=== PATIENT | female | born 1965 | race Asian ===

== ENCOUNTER 2017-04-20 11:58 | Inpatient (IN) | payer SELFPAY ==
[~2017-04-20] VITALS: Ht 157.5 cm; Wt 51.9 kg
[2017-04-20] MEDS ORDERED: IV NORMAL SALINE 1000ML BAG 1,000 ML IV SCH (13:01)
[2017-04-20 13:15] VITALS: BP 172/117
[2017-04-20] MEDS ORDERED: MAGNESIUM HYDROXIDE 2,400 MG/30 ML ORAL.SUSP. PO PRN (13:15)
[2017-04-20] MEDS ORDERED: MAG HYDROX/ALUMINUM HYD/SIMETH 30 ML ORAL.SUSP PO PRN (13:15)
[2017-04-20] MEDS ORDERED: ONDANSETRON PF 4 MG/2 ML VIAL. IV PRN (13:15)
[2017-04-20] MEDS ORDERED: 0.9 % SODIUM CHLORIDE 10 ML DISP.SYRIN. IV PRN (13:15)
[2017-04-20] MEDS ORDERED: AZITHROMYCIN 500 MG in IV NORMAL SALINE 250ML 250 ML IV ONE (13:15)
[2017-04-20] MEDS: ALBUTEROL SULFATE 2.5 MG/3 ML NEBU. NEB PRN ×2 (13:30→20:55)
[2017-04-20 13:57] LABS: BASO % 0 % (0-3); EOS % 0 % (0-3); HEMATOCRIT 44.9 % (36.0-47.0); HEMOGLOBIN 15.5 g/dL (12.0-15.5); LYMPH # 1.8 x10^3/uL (1.0-4.8); LYMPH % 27 % (24-48); MEAN CORPUSCULAR HEMOGLOBIN 28 pg (25-35); MEAN CORPUSCULAR HGB CONC 35 g/dL (31-37); MEAN CORPUSCULAR VOLUME 81 fL (79-100); MONO % 13 % (0-9); NEUT % 60 % (31-73); PLATELET COUNT 449 x10^3/uL (140-400); RED BLOOD COUNT 5.57 x10^6/uL (3.50-5.40); WHITE BLOOD COUNT 6.6 x10^3/uL (4.0-11.0)
[2017-04-20] MEDS: ENOXAPARIN 40 MG/0.4 ML SYRINGE. SQ SCH (13:59)
[2017-04-20] MEDS: HYDROcodone/APAP 5/325MG 1 TAB TABLET PO PRN ×2 (14:08→20:22)
[2017-04-20 14:19] LABS: ALBUMIN 3.2 g/dL (3.4-5.0); ALBUMIN/GLOBULIN RATIO 0.7 (1.0-1.7); CALCIUM 8.9 mg/dL (8.5-10.1); CREATININE 0.8 mg/dL (0.6-1.0); GFR 75.3; POTASSIUM 3.1 mmol/L (3.5-5.1); TOTAL BILIRUBIN 0.5 mg/dL (0.2-1.0)
[2017-04-20] MEDS ORDERED: CARV6.252 PO (14:26)
[2017-04-20 14:32] VITALS: BP 148/96
--- NOTE | 2017-04-20 14:36 | EKG ---
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
--- NOTE | 2017-04-20 15:52 | RAD ---
CT chest without contrast 04/20/2017 Clinical indication: Chest pain and concern for pneumonia. Comparison: Chest radiograph 04/20/2017. Technique: Multiple CT images of the chest were obtained without contrast according to standard protocol. Coronal and sagittal reformations were obtained. PQRS Compliance Statement: One or more of the following individualized dose reduction techniques were utilized for this examination: 1. Automated exposure control 2. Adjustment of the mA and/or kV according to patient size 3. Use of iterative reconstruction technique Findings: Chest: Pectus excavatum deformity. Heart size is upper limits of normal desiccation and pericardial effusion. The thoracic aorta is normal in caliber with minimal calcified atheromatous disease at the aortic arch. No axillary, mediastinal or obvious hilar lymphadenopathy, though evaluation is limited in the absence of intravenous contrast. Central airways are patent. There is patchy consolidation in in the right upper lobe with associated groundglass and nodular opacities. There are patchy groundglass opacities in the right lower lobe, lingula and left lower lobe with a few associated tree-in-bud opacities. No pleural effusion or pneumothorax. There are no destructive osseous lesions. Limited images of the upper abdomen: Grossly unremarkable. Impression: Patchy airspace airspace consolidation in the right upper lobe and bilateral groundglass and tree-in-bud opacities most compatible with multifocal infection.
--- NOTE | 2017-04-20 16:21 | RAD ---
Chest, 2 views, 04/20/2017: History: Pneumonia The heart is mildly enlarged. The pulmonary vascularity is normal. There is mild patchy right upper lobe infiltrate. There are mild streaky opacities in the lower chest compatible with atelectasis and/or scarring. No pleural fluid is seen. The bony structures are unremarkable. IMPRESSION: Mild right upper lobe infiltrate suggesting pneumonia.
[2017-04-20] MEDS: ACETAMINOPHEN 325 MG TABLET. PO PRN (16:35)
[2017-04-20] MEDS ORDERED: LISI10TA2 PO (18:01)
[2017-04-20 19:01] VITALS: BP 161/104
--- NOTE | 2017-04-20 20:21 | HP ---
ADMIT DATE: 04/20/2017 ADMISSION DIAGNOSIS: Pneumonia with acute respiratory failure. HISTORY OF PRESENT ILLNESS: This is a 51-year-old female who was in the [facility] and left to come home last Monday. As she was saying goodbye to families and friends, she was exposed to someone ____ with a cold and someone with pneumonia. She started developing some cough and cold symptoms last Monday as she was getting home. Her symptoms gradually worsened, then on Tuesday 04/17, she was seen at [facility] where a chest x-ray was done and she was diagnosed with pneumonia, started on Levaquin, given guaifenesin with codeine cough syrup, prednisone 10 mg to take t.i.d. Since then, she has not shown any improvement and has had worsening respiratory distress, is now sitting up and leaning forward to breathe. She is having some chest discomfort associated with breathing. She has not had a fever today. She has not had much appetite. She had not had any vomiting. She had not had any diarrhea and she had not had any urinary tract symptoms. She has not had any rash. She is unaware of any mosquito bites or other bug bites while in the [facility]. PAST MEDICAL HISTORY: Significant for a ventral hernia, hypertension, cervical cancer, hyperlipidemia. PAST SURGICAL HISTORY: Includes complete hysterectomy and ventral hernia repair with mesh in 2011. FAMILY HISTORY: Mother alive with diabetes. Father at age 51 with hypertension, diabetes and a stroke. Brother has had hypertension and heart attack. Another brother diabetic. SOCIAL HISTORY: She is . She has never smoked. Her is with her. ALLERGIES: She has no known drug allergies. CURRENT MEDICATIONS: Include lisinopril 10 mg daily, prednisone 10 mg, Robitussin with codeine 100/5 one teaspoon q. 4 hours p.r.n. cough and levofloxacin 750 mg daily, which she started 4 days ago, she has 3 days left. REVIEW OF SYSTEMS: CONSTITUTIONAL: Fever, chills, diminished appetite. HEENT: Congestion, cough. PULMONARY: Cough, shortness of breath. CARDIAC: Chest pain, but not anginal type. ABDOMEN: No vomiting or diarrhea. GENITOURINARY: No dysuria. MUSCULOSKELETAL: Generalized weakness. SKIN: No rash. NEUROLOGIC: No seizures or tremor. PHYSICAL EXAMINATION: VITAL SIGNS: She is afebrile. Heart rates tachycardic, but regular. Blood pressure 130/88. Weight is 104 pounds. She is 61.5 inches. Her temperature is 97.9 with an SaO2 on room air of 94%. GENERAL: She is in some moderate respiratory discomfort. HEENT: A little bit of congestion. Sclerae nonicteric. Conjunctivae are clear. TMs look normal. Posterior pharynx unremarkable without any erythema. NECK: Supple without adenopathy. LUNGS: With coarse sounds bilaterally. HEART: Tachycardic. No murmurs heard. ABDOMEN: Soft, nondistended. CHEST: Shows a bit of a pectus change. BREASTS: Not examined. BACK: There is no CVA tenderness. She is ambulatory with adequate strength, but activity makes her more dyspneic. She is sitting up, leaning forward to be most comfortable. EXTREMITIES: There is no clubbing, cyanosis or peripheral edema. NEUROLOGIC: There are no focal neurologic findings. LABORATORY STUDIES: Hematology: White count 6.6, hemoglobin 15.5, hematocrit 44.9, platelets elevated at 449. Differential shows an elevated Monospot, her mono percentage albarran 13, but otherwise unremarkable. Coags: Her D-dimer is 1.45. Chemistries: Potassium is 3.1, BUN 13, creatinine 0.8, glucose 187, albumin 3.2, but otherwise are normal. IMAGING: Chest x-ray shows a right upper lobe infiltrate consistent with pneumonia. CT of her chest shows pectus excavatum deformity, heart size is at the upper limits of normal. Thoracic aorta is normal. Minimal calcified atheromatous disease and an aortic arch is noted. No axillary or mediastinal obvious hilar lymphadenopathy is noted. There is patchy consolidation in the right upper lobe with associated ground glass nodular opacities. There are patchy ground glass opacities in the right lower lobe, lingula and left lower lobe with a few associated tree-in-bud opacities, but no pleural effusion or pneumothorax consistent with right upper lobe and multifocal areas of infection. ASSESSMENT: Pneumonia with acute respiratory failure, ____ additional studies, her EKG shows a supraventricular rhythm with aberrant intraventricular conduction, abnormal right axis deviation, likely related to her pectus deformity, but no acute apparent changes. There are some RVH with repolarization abnormality also noted. She is admitted, she is started on IV azithromycin and IV Rocephin and neb treatments. I do not think steroids at this point are helpful. Her chest pain will be treated with Lortab. We will try to avoid morphine for now to avoid any respiratory suppression, will consult Pulmonary. Her D-dimer was high and she did have a recent travel on the plane back from the [facility], but CT of her chest was done, CTA was requested, but nursing staff put in the order for CT, may need to do a VQ scan. W Gabby LAYTON MD DR: VIRI/vanna JOB#: [id number] / [id number]
[2017-04-20] MEDS: ZOLPIDEM 5 MG TABLET. PO PRN (21:52)
[2017-04-20 22:44] VITALS: BP 170/103
[2017-04-21] MEDS: HYDROcodone/APAP 5/325MG 1 TAB TABLET PO PRN ×4 (02:06→20:51)
[2017-04-21] MEDS: ALBUTEROL SULFATE 2.5 MG/3 ML NEBU. NEB PRN (02:11)
[2017-04-21 03:00] VITALS: BP 170/109
[2017-04-21] MEDS: guaiFENesin DM 200MG/20MG 10 ML SYRUP PO PRN ×4 (03:03→20:51)
[2017-04-21] MEDS: hydrALAZINE 20 MG/ML VIAL. IVP PRN (03:05)
--- NOTE | 2017-04-21 04:36 | ACF ---
Admission Forms Criteria PNEUMONIA, COMMUNITY ACQUIRED Clinical Indications for Admission to Inpatient Care (Place 'X' for any and all applicable criteria): Admission to inpatient status for two midnights or more is indicated for ANY ONE of the following (1)(2)(3): [ ]I. Hypoxia [ ]II. Hemodynamic instability [ ]III. Altered mental status that is severe or persistent [ ]IV. Dehydration that is severe or persistent. [ ]V. Bacteremia [ ]. Moderate-risk or high-risk category patients (Pneumonia Severity Index ( PSI) class IV or V, or CURB-65 score of 3 or greater). [ ]VII. Intermediate-risk category patients (e.g., PSI class III or CURB-65 score 2) who do not improve with outpatient and observation care treatment [ ]VIII. Outpatient treatment failure as indicated by 1 or more of the following(9): [ ]a) Failure to respond to antibiotic (eg, resistant organism) [ ]b) Clinically significant adverse effects from medication (eg, vomiting) [ ]c) Complications of pneumonia (eg, empyema, bacteremia) [ ]d) Significant worsening of comorbid cond necessitating inpatient care (eg, chronic heart failure) [ ]IX. Appropriate diagnostic testing and treatment unavailable in outpatient or recovery facility (eg, testing or infection control measures unavailable) [X]X. Respiratory finding (eg. tachypnea) that do not respond to outpatient observation care treatment [ ]XI. Complicated pleural effusions (eg, emphysema, exudative, loculated) [ ]XII. Immunocompromised patients (e.g., AIDS, chronic steroid use) at moderate or high risk based on clinical evaluation. Extended stay beyond goal length of stay may be needed for (20) [ ]a) Unclear diagnosis [ ]b) Pleural disease [ ]c) Severe pneumonia or treatment failure [ ]d) Respiratory failure [ ]e) New onset hyponatremia (serum Na concentration less than 135 mEq/L(mmol/ L) [ ]f) Clinically significant comorbid illness (eg, heart failure, atrial fibrillation with rapid heart rate, alcohol withdrawal, renal insufficiency)(34)(35) [ ]g) Comorbid acute exacerbation of COPD(36) [ ]h) Concomitant diagnosis of malignancy [ ]i) Concomitant altered mental status [ ]j) Culture-identified Gram-negative or antibiotic-resistant organism (eg, Pseudomonas, methicillin-resistant Staphylococcus aureus MRSA)(30) [ ]k) Healthcare-associated pneumonia (36) The original [facility] content created by [facility] has been revised. The portions of the content which have been revised are identified through the use of italic text, and [facility] has neither reviewed nor approved the modified material. All other unmodified content is copyright [facility]. Please see references footnoted in the original [facility] edition 2015 Admission Criteria Met?: Yes ANDREW AMEZCUA Apr 21, 2017 04:36
[2017-04-21 07:00] VITALS: BP 124/89
[2017-04-21] MEDS: ACETAMINOPHEN 325 MG TABLET. PO PRN ×2 (09:39→17:41)
[2017-04-21 10:44] VITALS: BP 148/89
[2017-04-21] MEDS: ENOXAPARIN 40 MG/0.4 ML SYRINGE. SQ SCH (14:09)
[2017-04-21 14:58] VITALS: BP 136/87
[2017-04-21] MEDS: AZITHROMYCIN 250 MG in IV NORMAL SALINE 250ML 250 ML IV SCH (15:01)
--- NOTE | 2017-04-21 18:00 | PDOC ---
PULMONARY PROGRESS NOTES Vitals Vital Signs Date Time Temp Pulse Resp B/P (MAP) Pulse Ox O2 Delivery O2 Flow Rate FiO2 04/21/17 15:28 Nasal Cannula 2.0 04/21/17 14:58 98.1 97 20 136/87 (103) 98 98.1 Labs Laboratory Tests Test 04/20/17 13:15 04/20/17 13:45 White Blood Count 6.6 x10^3/uL (4.0-11.0) Red Blood Count 5.57 x10^6/uL (3.50-5.40) Hemoglobin 15.5 g/dL (12.0-15.5) Hematocrit 44.9 % (36.0-47.0) Mean Corpuscular Volume 81 fL (79-100) Mean Corpuscular Hemoglobin 28 pg (25-35) Mean Corpuscular Hemoglobin Concent 35 g/dL (31-37) Red Cell Distribution Width 14.0 % (11.5-14.5) Platelet Count 449 x10^3/uL (140-400) Neutrophils (%) (Auto) 60 % (31-73) Lymphocytes (%) (Auto) 27 % (24-48) Monocytes (%) (Auto) 13 % (0-9) Eosinophils (%) (Auto) 0 % (0-3) Basophils (%) (Auto) 0 % (0-3) Neutrophils # (Auto) 4.0 x10^3uL (1.8-7.7) Lymphocytes # (Auto) 1.8 x10^3/uL (1.0-4.8) Monocytes # (Auto) 0.9 x10^3/uL (0.0-1.1) Eosinophils # (Auto) 0.0 x10^3/uL (0.0-0.7) Basophils # (Auto) 0.0 x10^3/uL (0.0-0.2) Sodium Level 137 mmol/L (136-145) Potassium Level 3.1 mmol/L (3.5-5.1) Chloride Level 99 mmol/L (98-107) Carbon Dioxide Level 26 mmol/L (21-32) Anion Gap 12 (6-14) Blood Urea Nitrogen 13 mg/dL (7-20) Creatinine 0.8 mg/dL (0.6-1.0) Estimated GFR (Cockcroft-Gault) 75.3 BUN/Creatinine Ratio 16 (6-20) Glucose Level 187 mg/dL (70-99) Calcium Level 8.9 mg/dL (8.5-10.1) Total Bilirubin 0.5 mg/dL (0.2-1.0) Aspartate Amino Transf (AST/SGOT) 19 U/L (15-37) Alanine Aminotransferase (ALT/SGPT) 30 U/L (14-59) Alkaline Phosphatase 101 U/L (46-116) Total Protein 8.0 g/dL (6.4-8.2) Albumin 3.2 g/dL (3.4-5.0) Albumin/Globulin Ratio 0.7 (1.0-1.7) D-Dimer (Josefina) 1.45 ug/mlFEU (0.00-0.50) Medications Active Scripts Medications Dose Route/Sig Max Daily Dose Days Date Category Lisinopril 10 Mg Tablet 1 Tab PO DAILY 04/20/17 Reported Impression . AGREE WITH CURRENT RX CHECK INFLUENZA SCREEN THANKS SHAYNA MOSQUEDA MD Apr 21, 2017 18:00
--- NOTE | 2017-04-21 18:05 | PDOC ---
PROGRESS NOTES Subjective Sleeping alot, still with resp discomfort, on O2, tolerating IV meds, eating some but not hungry Objective Afebrile BP: [] General: sleeping with head of bed elevated, awakens easily Heart: borderline tachy, regular Lungs: rhonchi Abd: soft, non distended Ext: no C/C/E WBC: normal Vital Signs Vital Signs Date Time Temp Pulse Resp B/P (MAP) Pulse Ox O2 Delivery O2 Flow Rate FiO2 04/21/17 15:28 Nasal Cannula 2.0 04/21/17 14:58 98.1 97 20 136/87 (103) 98 98.1 I & O Intake and Output 04/21/17 07:00 Intake Total 1300 ml Balance 1300 ml Intake Oral 1300 ml # Voids 4 Assessment and Plan Pneumonia with acute respiratory failure, pulm consulted, may be viral, on atypical bacteria broad spectrum coverage Problems: Nicky LAYTON MD Apr 21, 2017 18:05
[2017-04-21 19:00] VITALS: BP 154/92
[2017-04-21 23:00] VITALS: BP 155/93
--- NOTE | 2017-04-21 23:39 | CONS ---
DATE OF CONSULTATION: 04/21/2017 ATTENDING PHYSICIAN: Dr. Charles Shelley. REASON FOR CONSULTATION: The patient is seen in pulmonary consultation at the request of Dr. Shelley for abnormal x-ray ____ pneumonia. HISTORY OF PRESENT ILLNESS: The patient is a 51-year-old that was in the [facility] for approximately 5 weeks, returned home last Monday, which started off with cold-like symptoms, was seen in the urgent care center on Monday the , treated for pneumonia, started on Levaquin and prednisone. The patient's symptoms worsened. She presented to Dr. Shelley's office. She was directly admitted. She had an x-ray, which revealed bilateral pulmonary infiltrates. She had a CT confirming the same. She has been started on Rocephin and Zithromax. She has had no documented fever, one episode of emesis. She denies any hemoptysis. She has had no skin rashes. She does not recall having been bitten by any insects. No significant diarrhea. PAST MEDICAL HISTORY: Hypertension, cervical cancer, ventral hernia repair, hyperlipidemia. PAST SURGICAL HISTORY: Complete hysterectomy, ventral hernia repair. FAMILY HISTORY: Diabetes, hypertension. SOCIAL HISTORY: She is currently , never smoked. ALLERGIES: No known drug allergies. CURRENT MEDICATIONS: List was reviewed. Please see the MRAD. PHYSICAL EXAMINATION: VITAL SIGNS: Stable. O2 saturation was greater than 92%. Since admission, she has been afebrile. HEENT: Eyes, the sclerae were nonicteric. NECK: Jugular venous distention was not elevated. No lymphadenopathy. CHEST: Full expansion. LUNGS: Coarse breath sounds with rhonchi. CARDIOVASCULAR: Regular rate and rhythm with S1, S2, no S3. ABDOMEN: Soft, nontender, nondistended. EXTREMITIES: No clubbing, cyanosis or pitting edema. NEUROLOGIC: The patient was awake, alert, following commands. A detailed neuro exam was not performed. LABORATORY DATA: White count was normal, hemoglobin and hematocrit were noted. Electrolytes were noted. D-dimer was elevated. IMPRESSION: 1. Acute respiratory distress secondary to pneumonia. 2. Acute hypoxemic respiratory failure. 3. Bilateral pulmonary infiltrates. 4. Suspect viral pneumonia. 5. Hypertension. PLAN: 1. Continue current IV antibiotics. 2. Obtain influenza screen. 3. Continue current support. I do appreciate the privilege in sharing in the patient's care. SHAYNA MOSQUEDA MD DR: Myra JOB#: [id number] / [id number]
[2017-04-22] VITALS (8 sets, daily range): BP systolic 110–164; BP diastolic 59–101
[2017-04-22] MEDS: guaiFENesin DM 200MG/20MG 10 ML SYRUP PO PRN ×3 (01:10→20:25)
[2017-04-22] MEDS: HYDROcodone/APAP 5/325MG 1 TAB TABLET PO PRN ×5 (01:10→20:25)
[2017-04-22 01:51] LABS: OBC FLU VALID
[2017-04-22 06:01] LABS: BASO % 0 % (0-3); EOS % 1 % (0-3); HEMATOCRIT 41.9 % (36.0-47.0); HEMOGLOBIN 14.1 g/dL (12.0-15.5); LYMPH # 3.8 x10^3/uL (1.0-4.8); LYMPH % 38 % (24-48); MEAN CORPUSCULAR HEMOGLOBIN 27 pg (25-35); MEAN CORPUSCULAR HGB CONC 34 g/dL (31-37); MEAN CORPUSCULAR VOLUME 81 fL (79-100); MONO % 15 % (0-9); NEUT % 45 % (31-73); PLATELET COUNT 564 x10^3/uL (140-400); RED CELL DISTRIBUTION WIDTH 14.2 % (11.5-14.5); WHITE BLOOD COUNT 9.8 x10^3/uL (4.0-11.0)
[2017-04-22 06:16] LABS: CALCIUM 8.8 mg/dL (8.5-10.1); CREATININE 0.7 mg/dL (0.6-1.0); GFR 87.9; POTASSIUM 3.1 mmol/L (3.5-5.1)
--- NOTE | 2017-04-22 06:29 | PDOC ---
PULMONARY PROGRESS NOTES Vitals Vital Signs Date Time Temp Pulse Resp B/P (MAP) Pulse Ox O2 Delivery O2 Flow Rate FiO2 04/22/17 05:06 20 Nasal Cannula 04/22/17 03:00 99.0 96 140/87 (104) 99 99.0 04/21/17 20:00 2.0 Labs Laboratory Tests Test 04/20/17 13:15 04/20/17 13:45 04/21/17 23:30 04/22/17 04:55 White Blood Count 6.6 x10^3/uL (4.0-11.0) Red Blood Count 5.57 x10^6/uL (3.50-5.40) Hemoglobin 15.5 g/dL (12.0-15.5) Hematocrit 44.9 % (36.0-47.0) Mean Corpuscular Volume 81 fL (79-100) Mean Corpuscular Hemoglobin 28 pg (25-35) Mean Corpuscular Hemoglobin Concent 35 g/dL (31-37) Red Cell Distribution Width 14.0 % (11.5-14.5) Platelet Count 449 x10^3/uL (140-400) Neutrophils (%) (Auto) 60 % (31-73) Lymphocytes (%) (Auto) 27 % (24-48) Monocytes (%) (Auto) 13 % (0-9) Eosinophils (%) (Auto) 0 % (0-3) Basophils (%) (Auto) 0 % (0-3) Neutrophils # (Auto) 4.0 x10^3uL (1.8-7.7) Lymphocytes # (Auto) 1.8 x10^3/uL (1.0-4.8) Monocytes # (Auto) 0.9 x10^3/uL (0.0-1.1) Eosinophils # (Auto) 0.0 x10^3/uL (0.0-0.7) Basophils # (Auto) 0.0 x10^3/uL (0.0-0.2) Sodium Level 137 mmol/L (136-145) 138 mmol/L (136-145) Potassium Level 3.1 mmol/L (3.5-5.1) 3.1 mmol/L (3.5-5.1) Chloride Level 99 mmol/L (98-107) 100 mmol/L (98-107) Carbon Dioxide Level 26 mmol/L (21-32) 27 mmol/L (21-32) Anion Gap 12 (6-14) 11 (6-14) Blood Urea Nitrogen 13 mg/dL (7-20) 8 mg/dL (7-20) Creatinine 0.8 mg/dL (0.6-1.0) 0.7 mg/dL (0.6-1.0) Estimated GFR (Cockcroft-Gault) 75.3 87.9 BUN/Creatinine Ratio 16 (6-20) Glucose Level 187 mg/dL (70-99) 115 mg/dL (70-99) Calcium Level 8.9 mg/dL (8.5-10.1) 8.8 mg/dL (8.5-10.1) Total Bilirubin 0.5 mg/dL (0.2-1.0) Aspartate Amino Transf (AST/SGOT) 19 U/L (15-37) Alanine Aminotransferase (ALT/SGPT) 30 U/L (14-59) Alkaline Phosphatase 101 U/L (46-116) Total Protein 8.0 g/dL (6.4-8.2) Albumin 3.2 g/dL (3.4-5.0) Albumin/Globulin Ratio 0.7 (1.0-1.7) D-Dimer (Josefina) 1.45 ug/mlFEU (0.00-0.50) Influenza Type A Antigen Negative (NEGATIVE) Influenza Type B Antigen Negative (NEGATIVE) Laboratory Tests Test 04/21/17 23:30 04/22/17 04:55 Influenza Type A Antigen Negative (NEGATIVE) Influenza Type B Antigen Negative (NEGATIVE) Sodium Level 138 mmol/L (136-145) Potassium Level 3.1 mmol/L (3.5-5.1) Chloride Level 100 mmol/L (98-107) Carbon Dioxide Level 27 mmol/L (21-32) Anion Gap 11 (6-14) Blood Urea Nitrogen 8 mg/dL (7-20) Creatinine 0.7 mg/dL (0.6-1.0) Estimated GFR (Cockcroft-Gault) 87.9 Glucose Level 115 mg/dL (70-99) Calcium Level 8.8 mg/dL (8.5-10.1) Medications Active Scripts Medications Dose Route/Sig Max Daily Dose Days Date Category Lisinopril 10 Mg Tablet 1 Tab PO DAILY 04/20/17 Reported Impression . IMPRESSION: 1. Acute respiratory distress secondary to pneumonia. 2. Acute hypoxemic respiratory failure. 3. Bilateral pulmonary infiltrates. 4. Suspect viral pneumonia. 5. Hypertension. Plan . PLAN: 1. Continue current IV antibiotics. 2. Obtain influenza screen. 3. Continue current support. I do appreciate the privilege in sharing in the patient's care. SHAYNA MOSQUEDA MD Apr 22, 2017 06:29
[2017-04-22] MEDS: ACETAMINOPHEN 325 MG TABLET. PO PRN ×2 (08:13)
--- NOTE | 2017-04-22 09:20 | PDOC ---
PULMONARY PROGRESS NOTES Subjective ABOUT THE SAME Vitals Vital Signs Date Time Temp Pulse Resp B/P (MAP) Pulse Ox O2 Delivery O2 Flow Rate FiO2 04/22/17 08:00 Room Air 04/22/17 07:20 98.8 89 16 141/86 (104) 98 2.0 98.8 Lungs: Crackles Cardiovascular: S1, S2 Labs Laboratory Tests Test 04/20/17 13:15 04/20/17 13:45 04/21/17 23:30 04/22/17 04:55 White Blood Count 6.6 x10^3/uL (4.0-11.0) 9.8 x10^3/uL (4.0-11.0) Red Blood Count 5.57 x10^6/uL (3.50-5.40) 5.20 x10^6/uL (3.50-5.40) Hemoglobin 15.5 g/dL (12.0-15.5) 14.1 g/dL (12.0-15.5) Hematocrit 44.9 % (36.0-47.0) 41.9 % (36.0-47.0) Mean Corpuscular Volume 81 fL (79-100) 81 fL (79-100) Mean Corpuscular Hemoglobin 28 pg (25-35) 27 pg (25-35) Mean Corpuscular Hemoglobin Concent 35 g/dL (31-37) 34 g/dL (31-37) Red Cell Distribution Width 14.0 % (11.5-14.5) 14.2 % (11.5-14.5) Platelet Count 449 x10^3/uL (140-400) 564 x10^3/uL (140-400) Neutrophils (%) (Auto) 60 % (31-73) 45 % (31-73) Lymphocytes (%) (Auto) 27 % (24-48) 38 % (24-48) Monocytes (%) (Auto) 13 % (0-9) 15 % (0-9) Eosinophils (%) (Auto) 0 % (0-3) 1 % (0-3) Basophils (%) (Auto) 0 % (0-3) 0 % (0-3) Neutrophils # (Auto) 4.0 x10^3uL (1.8-7.7) 4.4 x10^3uL (1.8-7.7) Lymphocytes # (Auto) 1.8 x10^3/uL (1.0-4.8) 3.8 x10^3/uL (1.0-4.8) Monocytes # (Auto) 0.9 x10^3/uL (0.0-1.1) 1.5 x10^3/uL (0.0-1.1) Eosinophils # (Auto) 0.0 x10^3/uL (0.0-0.7) 0.1 x10^3/uL (0.0-0.7) Basophils # (Auto) 0.0 x10^3/uL (0.0-0.2) 0.0 x10^3/uL (0.0-0.2) Sodium Level 137 mmol/L (136-145) 138 mmol/L (136-145) Potassium Level 3.1 mmol/L (3.5-5.1) 3.1 mmol/L (3.5-5.1) Chloride Level 99 mmol/L (98-107) 100 mmol/L (98-107) Carbon Dioxide Level 26 mmol/L (21-32) 27 mmol/L (21-32) Anion Gap 12 (6-14) 11 (6-14) Blood Urea Nitrogen 13 mg/dL (7-20) 8 mg/dL (7-20) Creatinine 0.8 mg/dL (0.6-1.0) 0.7 mg/dL (0.6-1.0) Estimated GFR (Cockcroft-Gault) 75.3 87.9 BUN/Creatinine Ratio 16 (6-20) Glucose Level 187 mg/dL (70-99) 115 mg/dL (70-99) Calcium Level 8.9 mg/dL (8.5-10.1) 8.8 mg/dL (8.5-10.1) Total Bilirubin 0.5 mg/dL (0.2-1.0) Aspartate Amino Transf (AST/SGOT) 19 U/L (15-37) Alanine Aminotransferase (ALT/SGPT) 30 U/L (14-59) Alkaline Phosphatase 101 U/L (46-116) Total Protein 8.0 g/dL (6.4-8.2) Albumin 3.2 g/dL (3.4-5.0) Albumin/Globulin Ratio 0.7 (1.0-1.7) D-Dimer (Josefina) 1.45 ug/mlFEU (0.00-0.50) Influenza Type A Antigen Negative (NEGATIVE) Influenza Type B Antigen Negative (NEGATIVE) Laboratory Tests Test 04/21/17 23:30 04/22/17 04:55 Influenza Type A Antigen Negative (NEGATIVE) Influenza Type B Antigen Negative (NEGATIVE) White Blood Count 9.8 x10^3/uL (4.0-11.0) Red Blood Count 5.20 x10^6/uL (3.50-5.40) Hemoglobin 14.1 g/dL (12.0-15.5) Hematocrit 41.9 % (36.0-47.0) Mean Corpuscular Volume 81 fL (79-100) Mean Corpuscular Hemoglobin 27 pg (25-35) Mean Corpuscular Hemoglobin Concent 34 g/dL (31-37) Red Cell Distribution Width 14.2 % (11.5-14.5) Platelet Count 564 x10^3/uL (140-400) Neutrophils (%) (Auto) 45 % (31-73) Lymphocytes (%) (Auto) 38 % (24-48) Monocytes (%) (Auto) 15 % (0-9) Eosinophils (%) (Auto) 1 % (0-3) Basophils (%) (Auto) 0 % (0-3) Neutrophils # (Auto) 4.4 x10^3uL (1.8-7.7) Lymphocytes # (Auto) 3.8 x10^3/uL (1.0-4.8) Monocytes # (Auto) 1.5 x10^3/uL (0.0-1.1) Eosinophils # (Auto) 0.1 x10^3/uL (0.0-0.7) Basophils # (Auto) 0.0 x10^3/uL (0.0-0.2) Sodium Level 138 mmol/L (136-145) Potassium Level 3.1 mmol/L (3.5-5.1) Chloride Level 100 mmol/L (98-107) Carbon Dioxide Level 27 mmol/L (21-32) Anion Gap 11 (6-14) Blood Urea Nitrogen 8 mg/dL (7-20) Creatinine 0.7 mg/dL (0.6-1.0) Estimated GFR (Cockcroft-Gault) 87.9 Glucose Level 115 mg/dL (70-99) Calcium Level 8.8 mg/dL (8.5-10.1) Medications Active Scripts Medications Dose Route/Sig Max Daily Dose Days Date Category Lisinopril 10 Mg Tablet 1 Tab PO DAILY 04/20/17 Reported Impression . IMPRESSION: 1. Acute respiratory distress secondary to pneumonia. 2. Acute hypoxemic respiratory failure. 3. Bilateral pulmonary infiltrates. 4. Suspect viral pneumonia. 5. Hypertension. Plan . HOME IN NEXT 24-48 HOURS 1. Continue current IV antibiotics. 2. Obtain influenza screen/ NEGATIVE 3. Continue current support. SHAYNA MOSQUEDA MD Apr 22, 2017 09:20
[2017-04-22] MEDS: IBUPROFEN 800 MG TABLET. PO PRN (13:08)
[2017-04-22] MEDS: ENOXAPARIN 40 MG/0.4 ML SYRINGE. SQ SCH (13:09)
--- NOTE | 2017-04-22 13:11 | PDOC ---
PROGRESS NOTES Subjective Tired, no appetite, posterior lung pain uncontrolled with Lortab Objective Afebrile General: breathing comfortably on RA Heart: RRR no murmur Lungs: no wheezes or retractions but breaths are shallow Abd: soft, non distended, non tender Ext: [no C/C/E WBC: 9.8 Hgb: 14 K+: 3.1 Creat: 0.7 Vital Signs Vital Signs Date Time Temp Pulse Resp B/P (MAP) Pulse Ox O2 Delivery O2 Flow Rate FiO2 04/22/17 10:38 98.8 80 16 137/83 (101) 93 Room Air 98.8 04/22/17 10:34 2.0 I & O Intake and Output 04/22/17 07:00 Intake Total 1300 ml Output Total 450 ml Balance 850 ml Intake Oral 1300 ml Output Urine Total 450 ml # Voids 3 # Bowel Movements 1 Assessment and Plan 1. Pneumonia, community acquired, may be viral, on atypical bacteria broad spectrum coverage, anticipate discharge tomorrow 2. acute respiratory failure, pulm following, now on room air, 3. hypokalemia - supplement po Problems: Nicky LAYTON MD Apr 22, 2017 13:11
[2017-04-22] MEDS: POTASSIUM CHLORIDE 10 MEQ TABLET.ER. PO SCH (13:41)
[2017-04-22] MEDS: AZITHROMYCIN 250 MG in IV NORMAL SALINE 250ML 250 ML IV SCH (14:27)
[2017-04-22] MEDS: hydrALAZINE 20 MG/ML VIAL. IVP PRN (14:49)
[2017-04-22] MEDS: ALBUTEROL SULFATE 2.5 MG/3 ML NEBU. NEB PRN (15:30)
[2017-04-22] MEDS: METOPROLOL TART IMMED RELEASE 25 MG TABLET. PO SCH (15:48)
[2017-04-22] MEDS: ZOLPIDEM 5 MG TABLET. PO PRN (20:25)
[2017-04-23] MEDS: HYDROcodone/APAP 5/325MG 1 TAB TABLET PO PRN ×3 (01:15→12:23)
[2017-04-23] MEDS: IBUPROFEN 800 MG TABLET. PO PRN ×3 (01:15→14:23)
[2017-04-23 03:00] VITALS: BP 138/94
[2017-04-23 07:00] VITALS: BP 141/86
[2017-04-23] MEDS: POTASSIUM CHLORIDE 10 MEQ TABLET.ER. PO SCH (08:26)
[2017-04-23] MEDS: METOPROLOL TART IMMED RELEASE 25 MG TABLET. PO SCH (08:27)
--- NOTE | 2017-04-23 10:15 | PDOC ---
PULMONARY PROGRESS NOTES Subjective ABOUT THE SAME Vitals Vital Signs Date Time Temp Pulse Resp B/P (MAP) Pulse Ox O2 Delivery O2 Flow Rate FiO2 04/23/17 08:27 104 141/86 04/23/17 07:00 97.9 18 95 Nasal Cannula 2.0 97.9 Lungs: Crackles Cardiovascular: S1, S2 Labs Laboratory Tests Test 04/21/17 23:30 04/22/17 04:55 04/22/17 15:50 Influenza Type A Antigen Negative (NEGATIVE) Influenza Type B Antigen Negative (NEGATIVE) White Blood Count 9.8 x10^3/uL (4.0-11.0) Red Blood Count 5.20 x10^6/uL (3.50-5.40) Hemoglobin 14.1 g/dL (12.0-15.5) Hematocrit 41.9 % (36.0-47.0) Mean Corpuscular Volume 81 fL (79-100) Mean Corpuscular Hemoglobin 27 pg (25-35) Mean Corpuscular Hemoglobin Concent 34 g/dL (31-37) Red Cell Distribution Width 14.2 % (11.5-14.5) Platelet Count 564 x10^3/uL (140-400) Neutrophils (%) (Auto) 45 % (31-73) Lymphocytes (%) (Auto) 38 % (24-48) Monocytes (%) (Auto) 15 % (0-9) Eosinophils (%) (Auto) 1 % (0-3) Basophils (%) (Auto) 0 % (0-3) Neutrophils # (Auto) 4.4 x10^3uL (1.8-7.7) Lymphocytes # (Auto) 3.8 x10^3/uL (1.0-4.8) Monocytes # (Auto) 1.5 x10^3/uL (0.0-1.1) Eosinophils # (Auto) 0.1 x10^3/uL (0.0-0.7) Basophils # (Auto) 0.0 x10^3/uL (0.0-0.2) Sodium Level 138 mmol/L (136-145) Potassium Level 3.1 mmol/L (3.5-5.1) Chloride Level 100 mmol/L (98-107) Carbon Dioxide Level 27 mmol/L (21-32) Anion Gap 11 (6-14) Blood Urea Nitrogen 8 mg/dL (7-20) Creatinine 0.7 mg/dL (0.6-1.0) Estimated GFR (Cockcroft-Gault) 87.9 Glucose Level 115 mg/dL (70-99) Calcium Level 8.8 mg/dL (8.5-10.1) Lactic Acid Level 1.1 mmol/L (0.4-2.0) Laboratory Tests Test 04/22/17 15:50 Lactic Acid Level 1.1 mmol/L (0.4-2.0) Medications Active Scripts Medications Dose Route/Sig Max Daily Dose Days Date Category Lisinopril 10 Mg Tablet 1 Tab PO DAILY 04/20/17 Reported Impression . IMPRESSION: 1. Acute respiratory distress secondary to pneumonia. 2. Acute hypoxemic respiratory failure. 3. Bilateral pulmonary infiltrates. 4. Suspect viral pneumonia. 5. Hypertension. Plan . D/C TODAY SHE IS BETTER NO 02 AT THIS TIME HOME ON AUGMENTIN AND DOXY SHAYNA MOSQUEDA MD Apr 23, 2017 10:15
[2017-04-23] MEDS ORDERED: CEFP200T PO (13:35)
[2017-04-23] MEDS ORDERED: DOXY50CA PO (13:35)
--- NOTE | 2017-04-23 13:50 | PDOC ---
Provider Note Provider Note discharge dictated # [id number] Nicky LAYTON MD Apr 23, 2017 13:50
[2017-04-23] MEDS: AZITHROMYCIN 250 MG in IV NORMAL SALINE 250ML 250 ML IV SCH (14:17)
[2017-04-23] MEDS: ENOXAPARIN 40 MG/0.4 ML SYRINGE. SQ SCH (14:17)
[2017-04-23 14:47] VITALS: BP 122/83
--- NOTE | 2017-04-23 20:50 | DS ---
DATE OF DISCHARGE: 04/23/2017 ADMISSION DIAGNOSIS: Pneumonia. DISCHARGE DIAGNOSIS: Pneumonia, community acquired. ASSOCIATED DIAGNOSES: Tachycardia and chest pain from pneumonia and underlying hypertension. HISTORY AND HOSPITAL COURSE: This is a 51-year-old female who recently returned from the [facility] and as she was leaving she may have picked up an infection. She got back home and over the ensuing week, she has continued to feel worse with increased cough, increased dyspnea. She was seen in the office and admitted to the hospital. Started on IV antibiotics. Pulmonary consultation obtained and she has gradually improved. She has her appetite back, is eating today. Her pain has resolved. Her tachycardia has resolved. PHYSICAL EXAMINATION: HEART: Regular rate and rhythm. LUNGS: Clear. She has been afebrile. White count was normal throughout. Her platelets have been elevated though. Hemoglobin is normal. D-dimer was slightly high. Chemistries show low potassium that has been replaced. Glucose has come under control without treatment. Flu A and B were negative. CT of her chest showed a pectus deformity. Heart size upper limits of normal. There was patchy consolidation of the right upper lobe with a ground glass appearance and similar areas in the right lower lobe, lingula and left lower lobe with tree-in-bud opacities, most compatible with multifocal infection. She was started on Rocephin and azithromycin intravenously. She will finish her dose today and is discharged on Vantin 200 mg b.i.d. for a week and doxycycline 100 mg b.i.d. for a week. She will continue lisinopril at home. Other meds over the counter is needed. Follow up as needed. W Gabby LAYTON MD DR: VIRI/vanna JOB#: [id number] / [id number]
--- NOTE | 2017-04-24 08:28 | EKG ---
[facility] [address] [place] [address] Test Date: 2017-04-20 Test Time: 13:35:26 Pat Name: LILA FONG Department: Room: 574 1 Gender: F Relationship Consultant: : 1965 Requested By: Nicky LAYTON Order Number: [id number] Reading MD: Measurements Intervals [place] Rate: 115 P: -108 NH: 110 QRS: 144 QRSD: 132 T: 31 QT: 364 QTc: 506 Interpretive Statements SUPRAVENTRICULAR RHYTHM COMPLEX(ES) WITH ABERRANT INTRAVENTRICULAR CONDUCTION ABNORMAL RIGHT AXIS DEVIATION RIGHT BUNDLE BRANCH BLOCK RVH WITH REPOLARIZATION ABNORMALITY RI6.01 Unconfirmed report No previous ECG available for comparison
== END 2017-04-23 16:00 | disposition home or self-care (01) | DRG 193 ==
LOC: 5 SOUTH 12:09
PROVIDERS: ADMIT Family Medicine; ATTEND Family Medicine
DX: J18.9 Pneumonia, unspecified organism (principal); J96.01 Acute respiratory failure with hypoxia; E87.6 Hypokalemia; R00.0 Tachycardia, unspecified; E78.5 Hyperlipidemia, unspecified; I10 Essential (primary) hypertension; Z82.3 Family history of stroke; Z82.49 Family history of ischemic heart disease and other diseases of the circulatory system; Z83.3 Family history of diabetes mellitus; Z85.41 Personal history of malignant neoplasm of cervix uteri; Z90.710 Acquired absence of both cervix and uterus
CPT/HCPCS: 36415; 71020; 71250; 80048; 80053; 83605; 85027; 85379; 87040; 87070; 87205; 87804; 93005; 94640; C1887; J0360; J0456; J0696; J1650; J2405; J7030; J7050; J7613

== ENCOUNTER → 2017-05-04 | Outpatient (CLI) | payer SELFPAY ==
[2017-04-23 14:47] VITALS: BP 122/83
[~2017-05-04] MED LIST: CARV6.252 PO; CEFP200T PO; DOXY50CA PO; LISI10TA2 PO
--- NOTE | 2017-05-04 16:36 | KCIC ---
Indication: Pneumonia. Time of exam 4:18 PM No prior studies are available for comparison. The heart size is normal. There are linear parenchymal densities identified in the right midlung and left midlung, likely atelectasis or scarring. No parenchymal consolidation is seen. No effusion is identified. There is no pneumothorax. IMPRESSION: Subsegmental atelectasis or scarring bilaterally. No acute infiltrate is detected. Electronically signed by: Evan Rojas MD (05/04/2017 4:33 PM) [id number]
== END | disposition home or self-care (01) ==
LOC: KCIC 16:12
PROVIDERS: ATTEND Family Medicine
DX: J18.9 Pneumonia, unspecified organism (principal)
CPT/HCPCS: 71020

== ENCOUNTER → 2018-10-12 | Outpatient (CLI) | payer BC ==
[~2018-10-12] MED LIST changes: +CARV6.2511 PO; -CARV6.252 PO
--- NOTE | 2018-10-12 16:38 | KCIC ---
Indications: Acute right ankle and right foot pain. Three-view right foot study: No acute fracture or dislocation or osteolytic process is seen. No plantar spur of the calcaneus is seen. Small posterior spur of the calcaneus is evident. 3 view right ankle study: No acute fracture or dislocation or osteolytic process is seen. The mortise ankle joint is intact. IMPRESSION: No acute osseous abnormality is seen. Electronically signed by: Alfa Villagomez MD (10/12/2018 4:34 PM) [id number]
== END | disposition home or self-care (01) ==
LOC: KCIC 08:14
PROVIDERS: ATTEND Nurse Practitioner Gerontology
DX: M77.31 Calcaneal spur, right foot (principal)
CPT/HCPCS: 73610; 73630

== ENCOUNTER → 2020-03-27 | Outpatient (CLI) | payer BC, OTHER ==
--- NOTE | 2020-03-27 08:20 | RAD ---
EXAM: Abdomen sonogram. HISTORY: Abnormal liver function laboratory values. TECHNIQUE: Sonographic imaging of the abdomen was performed. COMPARISON: None. FINDINGS: The liver is normal in size. There is hepatic steatosis. No focal hepatic lesion is seen. The gallbladder is unremarkable. The common bile duct is normal in caliber. The right kidney measures 8.8 cm [id number]. The pancreas and inferior vena cava are unremarkable. IMPRESSION: 1. Hepatic steatosis. 2. Slight decreased right renal size. This is likely due to measurement technique rather than mild atrophy in a patient of this age. Electronically signed by: Teagan Devries MD (03/27/2020 8:17 AM) [id number]
== END | disposition home or self-care (01) ==
LOC: US 06:43
PROVIDERS: ATTEND Family Medicine
DX: K76.0 Fatty (change of) liver, not elsewhere classified (principal); R94.5 Abnormal results of liver function studies
CPT/HCPCS: 76705

== ENCOUNTER → 2020-05-14 | Outpatient (CLI) | payer OTHER ==
--- NOTE | 2020-05-14 17:11 | KCIC ---
3 view left foot HISTORY: Pain AP lateral oblique views There is shortening of the fourth metatarsal. Remaining visualized osseous structures appear normal. IMPRESSION: Short fourth metatarsal. No acute findings. Electronically signed by: Paul Kapadia III, MD (05/14/2020 5:08 PM) [id number]
== END ==
LOC: KCIC 13:22
PROVIDERS: ATTEND Family Medicine
DX: M76.62 Achilles tendinitis, left leg (principal)
CPT/HCPCS: 73630